=== PATIENT | male | born 1940 | race Caucasian/White ===

== ENCOUNTER 2016-11-22 11:46 | Outpatient (CLI) | payer MEDICARE, OTHER ==
[2016-11-22 12:57] LABS: Anion Gap 13 mmol/L (10-20); BUN (Urea Nitrogen) 21 mg/dL (8.4-25.7); Calc. Creatinine Clearance 0 mL/min (70-130); Carbon Dioxide 25 mmol/L (23-31); Chloride 108 mmol/L (98-107); Estimated GFR-MDRD 53; Glucose 93 mg/dL (83-110); Sodium 140 mmol/L (136-145)
== END 2016-11-22 11:47 | disposition home or self-care (01) ==
LOC: BURLAB 11:46
PROVIDERS: ATTEND Internal Medicine Cardiovascular Disease
DX: I10 Essential (primary) hypertension (principal)
CPT/HCPCS: 36415; 80048

== ENCOUNTER 2021-02-18 09:17 | Emergency (ER) | payer MEDICARE ==
[2021-02-18] MEDS ORDERED: Ketorolac Tromethamine 30 MG/ML VIAL ONE (09:49)
[2021-02-18 10:04] LABS: #Basophils 0.1 thou/uL (0.0-0.2); #Eosinphils 0.3 thou/uL (0.0-0.7); #Lymphocytes 1.1 thou/uL (1.20-3.40); #Monocytes 0.4 thou/uL (0.11-0.59); #Neutrophils 4.3 thou/uL (1.40-6.50); %Basophils 1.2 % (0.0-1.0); %Eosinophils 4.4 % (0.0-10.0); %Lymphocytes 17.4 % (21.0-51.0); %Monocytes 6.5 % (0.0-10.0); %Neutrophils 70.5 % (42.0-75.0); Hemoglobin 14.3 g/dL (14.0-18.0); Mean Corpuscular HGB CONC 33.6 g/dL (32.0-36.0); Mean Corpuscular Hemoglobin 33.4 pg (27.0-31.0); Mean Corpuscular Volume 99.5 fL (78.0-98.0); Platelet Count 116 thou/uL (130-400); Red Blood Cell (RBC) Count 4.27 mill/uL (4.70-6.10); White Blood Cell (WBC) Count 6.2 thou/uL (4.8-10.8)
[2021-02-18 10:13] LABS: ALT (SGPT) 35 U/L (8-55); AST (SGOT) 23 U/L (5-34); Albumin 4.1 g/dL (3.4-4.8); Alkaline Phosphatase 60 U/L (40-110); Anion Gap 16 mmol/L (10-20); BUN (Urea Nitrogen) 22 mg/dL (8.4-25.7); Bilirubin, Total 0.5 mg/dL (0.2-1.2); Calc. Creatinine Clearance 0 mL/min (70-130); Calcium 9.1 mg/dL (7.8-10.44); Carbon Dioxide 22 mmol/L (23-31); Chloride 105 mmol/L (98-107); Glucose 126 mg/dL (83-110); Potassium 4.6 mmol/L (3.5-5.1); Protein, Total 7.1 g/dL (5.8-8.1); Sodium 138 mmol/L (136-145)
[2021-02-18 10:34] LABS: MDiff Complete? YES; Macrocytosis SLIGHT = 6-15 cells (100X) (0-5/hpf); Platelet Morphology Comment Appears Decreased
== END 2021-02-18 10:51 | disposition home or self-care (01) ==
LOC: BURERS 09:17
DX: S29.011A Strain of muscle and tendon of front wall of thorax, initial encounter (principal); E78.5 Hyperlipidemia, unspecified; X50.9XXA Other and unspecified overexertion or strenuous movements or postures, initial encounter
CPT/HCPCS: 71046; 80053; 83880; 84484; 85025; 93005; 94760; 96374; J1885

== ENCOUNTER 2021-05-20 10:46 | Emergency (ER) | payer MEDICARE ==
[2021-05-20 21:08] LABS: SARS-CoV-2 PCR by NAA Not Detected (NotDetected)
== END 2021-05-20 12:16 | disposition home or self-care (01) ==
LOC: BURERS 10:46
DX: J02.9 Acute pharyngitis, unspecified (principal); B34.9 Viral infection, unspecified; Z20.822 Contact with and (suspected) exposure to COVID-19; I10 Essential (primary) hypertension
CPT/HCPCS: 87081; 87430; 87804 ×2; 99283; U0003; U0005

== ENCOUNTER 2021-06-27 13:29 | Emergency (ER) | payer MEDICARE ==
[2021-06-27] MEDS ORDERED: Acetaminophen 500 MG TAB ONE (14:08)
[2021-06-27 14:38] LABS: #Basophils 0.1 thou/uL (0.0-0.2); #Lymphocytes 0.5 thou/uL (1.20-3.40); #Monocytes 0.6 thou/uL (0.11-0.59); #Neutrophils 9.1 thou/uL (1.40-6.50); %Basophils 0.9 % (0.0-1.0); %Eosinophils 0.1 % (0.0-10.0); %Lymphocytes 4.8 % (21.0-51.0); %Monocytes 5.7 % (0.0-10.0); %Neutrophils 88.6 % (42.0-75.0); Hemoglobin 13.5 g/dL (14.0-18.0); Mean Corpuscular HGB CONC 34.5 g/dL (32.0-36.0); Mean Corpuscular Hemoglobin 33.3 pg (27.0-31.0); Mean Corpuscular Volume 96.7 fL (78.0-98.0); Mean Platelet Volume 8.1 fL (7.4-10.4); Platelet Count 143 thou/uL (130-400); RBC Distribution Width 11.7 % (11.5-14.5); Red Blood Cell (RBC) Count 4.05 mill/uL (4.70-6.10); White Blood Cell (WBC) Count 10.3 thou/uL (4.8-10.8)
[2021-06-27 14:52] LABS: ALT (SGPT) 28 U/L (8-55); AST (SGOT) 20 U/L (5-34); Albumin 4.1 g/dL (3.4-4.8); Alkaline Phosphatase 57 U/L (40-110); Anion Gap 13 mmol/L (10-20); BUN (Urea Nitrogen) 16 mg/dL (8.4-25.7); Bilirubin, Total 0.7 mg/dL (0.2-1.2); Calc. Creatinine Clearance 0 mL/min (70-130); Calcium 8.6 mg/dL (7.8-10.44); Carbon Dioxide 24 mmol/L (23-31); Chloride 104 mmol/L (98-107); Globulin 2.8 g/dL (2.4-3.5); Glucose 105 mg/dL (83-110); Lipase 34 U/L (8-78); Potassium 4.6 mmol/L (3.5-5.1); Protein, Total 6.9 g/dL (5.8-8.1); Sodium 136 mmol/L (136-145)
[2021-06-27 15:16] LABS: Bilirubin Small (Negative); Blood, Urine Negative (Negative); Clarity Clear (Clear); Glucose, Urine (Dipstick) Negative (Negative); Ketone, Urine Trace mg/dL (Negative); Leukocyte Negative (Negative); Nitrite Negative (Negative); Protein, Urine (Dipstick) 30 mg/dL (Neg-Trace); Specific Gravity, Urine 1.025 (1.005-1.030); Urobilinogen 0.2 mg/dL (Less than 2)
[2021-06-27 15:44] LABS: RBC/HPF 0-3 HPF (0-3); WBC/HPF 0-3 HPF (0-3)
[2021-06-27 15:45] LABS: Bacteria/HPF None Seen HPF (None Seen); Squamous Epithelial 0-3 HPF (0-3)
[2021-06-28 23:19] LABS: SARS-CoV-2 PCR by NAA Not Detected (NotDetected)
== END 2021-06-27 16:50 | disposition home or self-care (01) ==
LOC: BURERS 13:29
DX: R50.9 Fever, unspecified (principal); I95.2 Hypotension due to drugs; T46.5X5A Adverse effect of other antihypertensive drugs, initial encounter; I10 Essential (primary) hypertension; Z20.822 Contact with and (suspected) exposure to COVID-19; Z95.0 Presence of cardiac pacemaker; Z79.82 Long term (current) use of aspirin; Z79.899 Other long term (current) drug therapy
CPT/HCPCS: 71046; 80053; 83605; 83690; 85025; 87040; 87804 ×2; 99285; U0003; U0005; 36415; 81003; 81015

== ENCOUNTER 2023-04-22 11:42 | Emergency (ER) | payer OTHER ==
[2023-04-22] MEDS ORDERED: Acetaminophen 500 MG TAB ONE (12:25)
[2023-04-22 12:48] LABS: SARS-CoV-2 NAA Rapid Test DETECTED (NotDetected)
== END 2023-04-22 13:00 | disposition home or self-care (01) ==
LOC: BURERS 11:42
DX: U07.1 COVID-19 (principal); I10 Essential (primary) hypertension
CPT/HCPCS: 0240U; 71046